=== PATIENT | female | born 1960 | race African-American/Black ===

== ENCOUNTER 2017-11-05 12:42 | Emergency (ER) | payer MEDICAID ==
[~2017-11-05] VITALS: Ht 167.6 cm; Wt 90.7 kg
[~2017-11-05 12:42] MED LIST: AMLODIPINE BESY10 MG ORAL; BACITRACIN1 GM MC; BENADRYL ALLERG25 M1 PO; BENADRYL25 MG ORAL; CEPHALEXIN500 MG ORAL; CYCLOBENZAPRINE10 MG ORAL; DOXYCYCLINE MO100 MG ORAL; GABAPENTIN300 MG ORAL; HYDROCODON-ACE1 EA15 ORAL; HYDROCORTISON28.4 G5 TOPIC
--- NOTE | 2017-11-05 13:33 | Emergency Room Report ---
History of Present Illness General Chief Complaint: Lower Extremity Injury Source: Patient Present Illness HPI 57-year-old female presents emergency department complaining of 10 out of 10 in severity localized pain to the lateral aspect of the right ankle since yesterday. Patient status post mechanical trip and fall while walking down some stairs. Patient states she did not hit her head she did not lose consciousness she denies neck or back pain. Patient states that she iced her foot initially and she did experience some throbbing pain however upon wakening this morning she had exacerbation of pain with weight-bearing and attempts to walk. Patient denies previous injury to this extremity she denies skin color changes, bruises, open wounds or bleeding. Denies numbness tingling or loss of sensation or gross motor movements of the extremities, incontinence of bowel or bladder. Denies CP, Palpitations, LOC, AMS, dizziness, Changes in Vision, weakness or a sudden severe headache. Allergies: Coded Allergies: No Known Allergies (Unverified , 03/23/16) Patient History Past Medical History: see triage record Past Surgical History: none Pertinent Family History: none Last Menstrual Period: nn/a Now: No Reviewed Nursing Documentation: PMH: Agreed; PSxH: Agreed Nursing Documentation-PMH Hx Hypertension: Yes - chronic low back pain, spinal stenosis Review of Systems All Other Systems: negative except mentioned in HPI Physical Exam Vital Signs Date Time Temp Pulse Resp B/P (MAP) Pulse Ox O2 Delivery O2 Flow Rate FiO2 11/05/17 12:56 98.2 61 18 134/60 98 Room Air 98.2 Sp02 EP Interpretation: reviewed, normal General Appearance: no apparent distress, alert, GCS 15, non-toxic Head: normocephalic, atraumatic ENT: hearing grossly normal, normal voice Neck: full range of motion Respiratory: lungs clear, normal breath sounds, speaking full sentences Cardiovascular #1: regular rate, rhythm, no edema, normal capillary refill Musculoskeletal: back normal, normal range of motion, swelling - right lateral ankle, tender - right lateral ankle Neurologic: alert, oriented x3, responsive, motor strength/tone normal, sensory intact, speech normal, grossly normal Psychiatric: judgement/insight normal Skin: normal color, no rash, warm/dry, well hydrated Medical Decision Making PA Attestation Dr. paulino is my supervising Physician whom patient management has been discussed with. Diagnostic Impression: Primary Impression: Right ankle sprain Qualified Codes: S93.401A - Sprain of unspecified ligament of right ankle, initial encounter Additional Impression: Avulsion fracture ER Course 57-year-old female presents emergency department complaining of 10 out of 10 in severity localized pain to the lateral aspect of the right ankle since yesterday. Patient status post mechanical trip and fall while walking down some stairs. Patient states she did not hit her head she did not lose consciousness she denies neck or back pain. Patient states that she iced her foot initially and she did experience some throbbing pain however upon wakening this morning she had exacerbation of pain with weight-bearing and attempts to walk. Patient denies previous injury to this extremity she denies skin color changes, bruises, open wounds or bleeding. Denies numbness tingling or loss of sensation or gross motor movements of the extremities, incontinence of bowel or bladder. Denies CP, Palpitations, LOC, AMS, dizziness, Changes in Vision, weakness or a sudden severe headache. Ddx considered but are not limited to Fracture, dislocation, contusion, Sprain/ Strain/Spasm, Vital signs: are WNL, pt. is afebrile H&PE are most consistent with musculoskeletal injury will perform imaging to r/ o fractures/dislocations. ORDERS: - X-ray Right ankle - POSITIVE FOR AVULSION FRACTURE, Negative for Dislocation, or significant soft tissue injury, per preliminary read in ED, and signed by BÁRBARA Matos, my supervising physician has reviewed, and agrees with my interpretation. ED INTERVENTIONS: -Stir-up Splint applied to the right ankle by machining technician. Pt. remains neurovascularly intact. -Patient is provided with crutches and instructed on their use d/w pt. orthopedic follow up, PCP visit for referral to Ortho. DISCHARGE: At this time pt. is stable for d/c to home. Will provide printed patient care instructions, and any necessary prescriptions. Care plan and follow up instructions have been discussed with the patient prior to discharge. Other X-Ray Diagnostic Results Other X-Ray Diagnostic Results : X-Ray ordered: Right ankle # of Views/Limited Vs Complete: 3 View Indication: Pain EP Interpretation: Yes BÁRBARA Xray: Interpretation reviewed, by supervising MD, and agrees with findings. Interpretation: no dislocation, other - Soft tissue swelling noted and Avulsion Fracture Impression: Other - Abnormal Electronically Signed by: Annemarie Matos PA-C Last Vital Signs Date Time Temp Pulse Resp B/P (MAP) Pulse Ox O2 Delivery O2 Flow Rate FiO2 11/05/17 12:56 98.2 61 18 134/60 98 Room Air 98.2 Disposition: HOME, SELF-CARE Condition: Stable Scripts Ibuprofen* (MOTRIN*) 600 Mg Tablet 600 MG ORAL THREE TIMES A DAY, #20 TAB 0 Refills Prov: Annemarie Matos 11/05/17 Hydrocodone Bit/Acetaminophen 5-325* (NORCO 5-325*) 1 Each Tablet 1 TAB ORAL Q6H PRN for For Pain, #10 TAB 0 Refills Prov: Annemarie Matos 11/05/17 Patient Instructions: Ankle Sprain, Avulsion Fracture of the Foot Additional Instructions: Take medications as directed. Follow up with a Primary Care Provider in 3-5 days,fro ORTHOPEDIC Referral even if your symptoms have resolved. --Please review list of primary care clinics, if you do not already have a primary care provider Return sooner to ED if new symptoms occur, or current symptoms become worse. Do not drink alcohol, drive, or operate heavy machinery while taking [place] as this may cause drowsiness. - Please note that this Emergency Department Report was dictated using KARALITsea captain technology software, occasionally this can lead to erroneous entry secondary to interpretation by the dictation equipment. Annemarie Matos Nov 05, 2017 13:33
[2017-11-05] MEDS ORDERED: NORCO 5-325 TA1 EACH ORAL (13:46)
[2017-11-05] MEDS ORDERED: IBUPROFEN600 MG ORAL (13:46)
--- NOTE | 2017-11-05 14:12 | Diagnostic Imaging Report ---
Indication: Pain right ankle ankle pain/trauma Comparison: None Findings: 3 views of the right ankle obtained. Tiny bone fragment demonstrated in the anterolateral part of the foot in one of the views. This could be a small avulsive type injury. Soft tissue swelling is noted laterally. The ankle mortise is normal. No malalignment seen. IMPRESSION: Suspect a small cortical avulsive injury anterolateral part of the foot.
[2017-11-05 15:15] VITALS: BP 134/60
== END 2017-11-05 15:15 | disposition home or self-care (01) ==
LOC: EMR 13:15
DX: S93.401A Sprain of unspecified ligament of right ankle, initial encounter (principal); W10.9XXA Fall (on) (from) unspecified stairs and steps, initial encounter; Y92.9 Unspecified place or not applicable
CPT/HCPCS: 29505; 99284

== ENCOUNTER 2017-11-18 11:11 | Emergency (ER) | payer MEDICAID ==
[~2017-11-18] VITALS: Ht 170.2 cm; Wt 90.7 kg
[~2017-11-18 11:11] MED LIST changes: +IBUPROFEN600 MG ORAL; +NORCO 5-325 TA1 EACH ORAL
[2017-11-18] MEDS ORDERED: NORCO1 E1 ORAL (13:38)
--- NOTE | 2017-11-18 13:38 | Emergency Room Report ---
History of Present Illness General Chief Complaint: Lower Extremity Injury Source: Patient Present Illness Allergies: Coded Allergies: No Known Allergies (Unverified , 03/23/16) Nursing Documentation-[facility] Past Medical History: No History, Except For Hx Hypertension: Yes - chronic low back pain, spinal stenosis Hx Cerebrovascular Accident: Yes Physical Exam Vital Signs Date Time Temp Pulse Resp B/P (MAP) Pulse Ox O2 Delivery O2 Flow Rate FiO2 11/18/17 11:26 98.3 81 18 140/96 95 Room Air 98.2 Medical Decision Making PA Attestation Dr. Cassidy is my supervising Physician whom patient management has been discussed with. Diagnostic Impression: Primary Impression: Right ankle pain Qualified Codes: M25.571 - Pain in right ankle and joints of right foot Additional Impression: Foot pain, right Last Vital Signs Date Time Temp Pulse Resp B/P (MAP) Pulse Ox O2 Delivery O2 Flow Rate FiO2 11/18/17 11:26 98.3 81 18 140/96 95 Room Air 98.2 Disposition: HOME, SELF-CARE Condition: Stable Referrals: NOT APPLICABLE THIS PATIENT,RE (PCP) Patient Instructions: Avulsion Fracture of the Foot Additional Instructions: Continue to take previously prescribed pain medications as directed. Keep extremity Elevated to reduce swelling* Follow up with an EMBEDDED ENGINEER in 3-5 days, even if your symptoms have resolved. If symptoms persist MRI may be required at the discretion of your PCP or Ortho Specialist. --Please review list of primary care clinics, if you do not already have a primary care provider who can give you an Orthopedic Referral. Return sooner to ED if new symptoms occur, or current symptoms become worse. Do not drink alcohol, drive, or operate heavy machinery while taking [place] as this may cause drowsiness. - Please note that this Emergency Department Report was dictated using [employer] equipment operator technology software, occasionally this can lead to erroneous entry secondary to interpretation by the dictation equipment. Annemarie Matos Nov 18, 2017 13:38
--- NOTE | 2017-11-18 13:40 | Diagnostic Imaging Report ---
Indication: Foot Pain Comparison: None Findings: 3 views of the right foot were obtained. On one of the frontal projection there is a tiny sliver of cortical bone in the anterolateral hindfoot likely a tiny avulsion injury. Correlate clinically. No malalignment, erosions or periostitis are identified. Soft tissues are unremarkable. Impression: Suspected tiny avulsion fracture involving the anterolateral hindfoot.
[2017-11-18 14:34] VITALS: BP 128/83
== END 2017-11-18 14:42 | disposition home or self-care (01) ==
LOC: EMR 12:43
DX: M25.571 Pain in right ankle and joints of right foot (principal); M79.671 Pain in right foot; I10 Essential (primary) hypertension; Z86.73 Personal history of transient ischemic attack (TIA), and cerebral infarction without residual deficits; G89.29 Other chronic pain; M54.5 Low back pain
CPT/HCPCS: 99283

== ENCOUNTER 2018-08-02 09:43 | Emergency (ER) | payer MEDICAID ==
[~2018-08-02] VITALS: Ht 170.2 cm; Wt 86.2 kg
[~2018-08-02 09:43] MED LIST changes: +NORCO1 E1 ORAL
[2018-08-02] MEDS ORDERED: ASPIR 8181 MG ORAL (09:53)
[2018-08-02 10:16] VITALS: BP 131/88
--- NOTE | 2018-08-02 10:17 | NUR ---
ED Nurse Note:pt. came with swelling ledft eye, no drainage
--- NOTE | 2018-08-02 10:51 | Emergency Room Report ---
History of Present Illness General Chief Complaint: Skin Rash/Abscess Source: Patient, Medical Record Present Illness HPI Patient states that she noticed a bump and some swelling on her left eyelid over the past day. She states she also noted this morning that there was discharge and crusting on her eyelids when she woke up. She denies eye pain. She denies blurry vision. She denies recent illness. She denies headache. She has neck pain. She has no other complaints. Allergies: Coded Allergies: No Known Allergies (Unverified , 08/02/18) Patient History Past Medical History: none, see triage record, HTN Social History: Denies: smoking, alcohol use, drug use Last Menstrual Period: MENOPAUSE Reviewed Nursing Documentation: PMH: Agreed; PSxH: Agreed Nursing Documentation-PMH Hx Hypertension: Yes - chronic low back pain, spinal stenosis Hx Cerebrovascular Accident: Yes Review of Systems All Other Systems: negative except mentioned in HPI Physical Exam Vital Signs Date Time Temp Pulse Resp B/P (MAP) Pulse Ox O2 Delivery O2 Flow Rate FiO2 08/02/18 09:49 98.8 83 13 131/88 96 Room Air Sp02 EP Interpretation: reviewed, normal General Appearance: no apparent distress, alert, GCS 15, non-toxic Head: normocephalic, atraumatic Eyes: left eye other - Nodule with slight swelling in L. upper lid. ; bilateral eye PERRL ENT: hearing grossly normal, normal pharynx, no angioedema, normal voice Neck: normal inspection Respiratory: no respiratory distress, no retraction, no accessory muscle use, speaking full sentences Rectal: deferred Musculoskeletal: normal inspection Neurologic: alert, oriented x3, responsive, motor strength/tone normal, sensory intact, speech normal Psychiatric: judgement/insight normal, memory normal, mood/affect normal, no suicidal/homicidal ideation Skin: warm/dry, well hydrated, other - See above in Eye exam Medical Decision Making Diagnostic Impression: Primary Impression: Chalazion left upper eyelid Additional Impression: Conjunctivitis ER Course This patient has a chalazion of the left upper eyelid. She also has mild conjunctivitis. I'm going to go ahead and treat the patient with topical Ilotycin. I also educated the patient to use warm compresses to her eyelid. As a precaution and then the patient oral antibiotics in case there is an early infection that could be a pre-septal cellulitis. Although, overall, the evaluation is benign. The patient is also instructed to follow-up closely with her primary care physician. The patient is given close return precautions and follow-up instructions. Last Vital Signs Date Time Temp Pulse Resp B/P (MAP) Pulse Ox O2 Delivery O2 Flow Rate FiO2 08/02/18 10:16 98.8 82 13 131/88 96 Room Air Status: improved Disposition: HOME, SELF-CARE Condition: Improved Referrals: NON PHYSICIAN (PCP) Monique Duong DO Aug 02, 2018 10:51
[2018-08-02] MEDS ORDERED: ERYTHROMYCIN3.5 GM LEFT EYE (11:07)
[2018-08-02] MEDS ORDERED: CEPHALEXIN500 MG ORAL (11:07)
[2018-08-02 11:28] VITALS: BP 131/88
--- NOTE | 2018-08-02 11:29 | NUR ---
ER DISCHARGE NOTE: Patient is cleared to be discharged per ERMD, pt is aox4, on room air, with stable vital signs. pt was given dc and prescription instructions, pt was able to verbalize understanding, pt is able to ambulate with steady gait. pt took all belongings.
== END 2018-08-02 11:30 | disposition home or self-care (01) ==
LOC: EMR 10:45
DX: H00.14 Chalazion left upper eyelid (principal); H10.9 Unspecified conjunctivitis; I10 Essential (primary) hypertension; Z86.73 Personal history of transient ischemic attack (TIA), and cerebral infarction without residual deficits
CPT/HCPCS: 99282

== ENCOUNTER 2018-08-15 09:22 | Emergency (ER) | payer MEDICAID ==
[~2018-08-15] VITALS: Ht 170.2 cm; Wt 90.7 kg
[~2018-08-15 09:22] MED LIST changes: +ASPIR 8181 MG ORAL; +ERYTHROMYCIN3.5 GM LEFT EYE
[2018-08-15 09:25] VITALS: BP 139/89
[2018-08-15] MEDS ORDERED: SOMA250 MG PO (09:29)
--- NOTE | 2018-08-15 09:34 | NUR ---
ED Nurse Note: Pt came in due to lower back pain since yesterday and has been norco. Denies trauma/injury to her back.
--- NOTE | 2018-08-15 09:40 | NUR ---
ED Nurse Note: Dr Mccracken at the bed side for Incision and drainage.
--- NOTE | 2018-08-15 10:04 | Emergency Room Report ---
History of Present Illness General Chief Complaint: Lower Back Pain or Injury Source: Patient Present Illness HPI Patient presents with increased lower back pain. It started when she was sitting yesterday. She's been taking [place] and [place] at home. The pain is severe. It's radiating down her left leg she has some numbness of her great toe. She's had symptoms like this before. The last time it happened when she was reaching up for something. She's had pain radiating down the left leg in the past. She feels it's mainly muscle spasms. Pain is rated 7/10, aching and tightness. Patient's had an MRI done in the past and says she has bulging disks. There is no trauma recently. She denies any fevers, chills, blood thinners, incontinence, weakness. No chest pain, palpitations, nausea, vomiting, diarrhea, dysuria, abdominal pain , shortness of breath, depression, visual changes, headache. Allergies: Coded Allergies: No Known Allergies (Unverified , 08/02/18) Patient History Past Medical History: see triage record Social History: Denies: smoking Social History Narrative brought by daughter : 5 Reviewed Nursing Documentation: PMH: Agreed; PSxH: Agreed Nursing Documentation-PMH Hx Hypertension: Yes - chronic low back pain, spinal stenosis Hx Cerebrovascular Accident: Yes Review of Systems All Other Systems: negative except mentioned in HPI Physical Exam Vital Signs Date Time Temp Pulse Resp B/P (MAP) Pulse Ox O2 Delivery O2 Flow Rate FiO2 08/15/18 09:25 97.5 88 19 139/89 96 Room Air Sp02 EP Interpretation: reviewed, normal General Appearance: well appearing, no apparent distress, GCS 15 Head: normocephalic, atraumatic Eyes: bilateral eye normal inspection, bilateral eye PERRL ENT: hearing grossly normal, normal voice, moist mucus membranes Neck: full range of motion, supple Respiratory: lungs clear, no respiratory distress, speaking full sentences Cardiovascular #1: regular rate, rhythm Cardiovascular #2: 2+ radial (R) Gastrointestinal: normal inspection Musculoskeletal: other - Lumbar tenderness without point tenderness. Bilateral muscle spasms. Straight leg raise without increase in pain radiating to the left leg. There is minimal crossover pain when right leg is lifted. Neurologic: alert, motor strength/tone normal, DTRs symmetric, sensory intact, normal gait, speech normal Psychiatric: mood/affect normal Skin: no rash Medical Decision Making Diagnostic Impression: Primary Impression: Low back pain Qualified Codes: M54.5 - Low back pain ER Course Patient presents with lumbar pain. Is a long history of disc disease. There are no red flag symptoms at this time although she does say that she's got some numbness in her left big toe. She's had recent MRI. She's complaining more of muscle spasm at this time. Imaging is not indicated. The patient will be given a shot of Toradol and Percocet. Patient improved with treatment. No medical emergency at this time and no red flag symptoms. Patient stable for outpatient observation and treatment. Last Vital Signs Date Time Temp Pulse Resp B/P (MAP) Pulse Ox O2 Delivery O2 Flow Rate FiO2 08/15/18 10:49 98.0 69 18 130/76 98 Room Air Status: improved Disposition: HOME, SELF-CARE Condition: Improved Scripts Methocarbamol* (ROBAXIN*) 500 Mg Tablet 500 MG PO TID, #10 TAB 0 Refills Prov: Vinny Mccracken MD 08/15/18 Lidocaine/Menthol (LIDOPATCH) 1 Each Adh..patch 1 EACH TOPIC DAILY, #4 PATCH Patch(es) may remain in place for up to 12 hours in any 24-hour period. Prov: Vinny Mccracken MD 08/15/18 Ibuprofen* (MOTRIN*) 600 Mg Tablet 600 MG ORAL Q6H PRN for For Pain, #20 TAB Prov: Vinny Mccracken MD 08/15/18 Vinny Mccracken MD Aug 15, 2018 10:04
[2018-08-15] MEDS ORDERED: Ketorolac 60mg Inj IM ONE (10:15)
[2018-08-15] MEDS ORDERED: oxyCODONE HCL/Acetaminophen 5/325mg ORAL ONE (10:15)
[2018-08-15] MEDS ORDERED: ROBAXIN500 MG PO (10:42)
[2018-08-15] MEDS ORDERED: IBUPROFEN600 MG ORAL (10:42)
[2018-08-15] MEDS ORDERED: LIDOPATCH1 EACH TOPIC (10:42)
[2018-08-15 10:49] VITALS: BP 130/76
--- NOTE | 2018-08-15 10:49 | NUR ---
ER DISCHARGE NOTE: Patient is cleared to be discharged per ERMD, pt is aox4, on room air, with stable vital signs. pt was given dc and prescription instructions, pt was able to verbalize understanding, pt id band removed. pt is able to ambulate with steady gait. pt took all belongings and left with her family members.
== END 2018-08-15 10:49 | disposition home or self-care (01) ==
LOC: EMR 09:50
DX: M54.5 Low back pain (principal); R20.0 Anesthesia of skin; Z86.73 Personal history of transient ischemic attack (TIA), and cerebral infarction without residual deficits; M51.36 Other intervertebral disc degeneration, lumbar region
CPT/HCPCS: 96372; 99283

== ENCOUNTER 2018-12-03 09:45 | Emergency (ER) | payer MEDICAID ==
[~2018-12-03] VITALS: Ht 170.2 cm; Wt 86.2 kg
[~2018-12-03 09:45] MED LIST changes: +LIDOPATCH1 EACH TOPIC; +ROBAXIN500 MG PO; +SOMA250 MG PO
[2018-12-03 10:06] VITALS: BP 128/91
--- NOTE | 2018-12-03 10:08 | NUR ---
ED Nurse Note: pt walked in to Ed due to pain on right side of neck since Sun morning. pt denies any injury or twisted. per pt, ok for 3 hrs and pain started. unable to turn due to pain. AAO x4. respirations even and non-labored noted. will wait for the further order.
[2018-12-03] MEDS ORDERED: ATORVASTATIN CA20 MG ORAL (10:11)
[2018-12-03] MEDS ORDERED: oxyCODONE HCL/Acetaminophen 5/325mg ORAL ONE (10:15)
[2018-12-03] MEDS ORDERED: Dexamethasone 4mg/ml vial IM ONE (10:15)
[2018-12-03] MEDS ORDERED: Ketorolac 60mg Inj IM ONE (10:15)
[2018-12-03] MEDS ORDERED: NORCO 5-325 TA1 EACH ORAL (10:18)
[2018-12-03] MEDS ORDERED: CYCLOBENZAPRINE10 MG ORAL (10:18)
[2018-12-03] MEDS ORDERED: NAPROXEN250 MG ORAL (10:18)
--- NOTE | 2018-12-03 10:18 | Emergency Room Report ---
History of Present Illness General Chief Complaint: Neck Pain Source: Patient Present Illness HPI 58-year-old female history of hypertension, presents with right neck pain, patient states she woke up with it, no trauma, is been present since 5 days prior to arrival, she endorses an achy pain aggravated with movement alleviated with rest, no nausea no vomiting, no fever no chills, no chest pain, no shortness of breath, she presents for evaluation Allergies: Coded Allergies: No Known Allergies (Unverified , 08/02/18) Patient History Past Medical History: see triage record Last Menstrual Period: na Reviewed Nursing Documentation: PMH: Agreed; PSxH: Agreed Nursing Documentation-PMH Past Medical History: No History, Except For Hx Hypertension: Yes - chronic low back pain, spinal stenosis Hx Cerebrovascular Accident: Yes Review of Systems All Other Systems: negative except mentioned in HPI Physical Exam Vital Signs Date Time Temp Pulse Resp B/P (MAP) Pulse Ox O2 Delivery O2 Flow Rate FiO2 12/03/18 09:57 98.2 104 20 128/91 (103) 98 Room Air Sp02 EP Interpretation: reviewed, normal General Appearance: well appearing, no apparent distress, alert Head: normocephalic, atraumatic Eyes: bilateral eye PERRL, bilateral eye EOMI ENT: uvula midline, moist mucus membranes Neck: thyroid normal, limited range of motion, tender lateral - Right side tender to palpation, trapezius spasm , other - No C-spine tenderness Respiratory: lungs clear, no respiratory distress, no retraction, no accessory muscle use Cardiovascular #1: normal peripheral pulses, regular rate, rhythm, no edema, no gallop, no murmur Gastrointestinal: non tender, soft, no guarding, no rebound Musculoskeletal: normal inspection Neurologic: alert, oriented x3 Psychiatric: mood/affect normal Skin: no rash, warm/dry Medical Decision Making Diagnostic Impression: Primary Impression: Neck pain Additional Impression: Torticollis, acquired ER Course 58-year-old female presents with most likely torticollis, low suspicion for meningitis, low suspicion for trauma to the C-spine, patient counseled to follow -up with a primary care doctor, will provide patient with a pain regimen, return precautions discussed. Cures report ran Last Vital Signs Date Time Temp Pulse Resp B/P (MAP) Pulse Ox O2 Delivery O2 Flow Rate FiO2 12/03/18 10:06 98.2 104 20 128/91 98 Room Air Disposition: HOME, SELF-CARE Condition: Stable Scripts Hydrocodone Bit/Acetaminophen 5-325* (NORCO 5-325*) 1 Each Tablet 1 TAB ORAL Q6H PRN for For Pain, #12 TAB 0 Refills Prov: Naveen Coreas MD 12/03/18 Cyclobenzaprine Hcl* (FLEXERIL*) 10 Mg Tablet 10 MG ORAL THREE TIMES A DAY, #30 TAB Prov: Naveen Coreas MD 12/03/18 Naproxen* (NAPROSYN*) 250 Mg Tablet 250 MG ORAL BID PRN for For Pain, #20 TAB 0 Refills Prov: Naveen Coreas MD 12/03/18 Referrals: [facility] Patient Instructions: Acute Torticollis, Cervical Strain and Sprain With Rehab- [facility] Additional Instructions: The patient was provided with discharge instructions, notified to follow-up with a primary care doctor and or specialist in the next 24-48 hours, and to return to the ED if they have worsening of their symptoms. Please note that this report is being documented using Wattage technology. This can lead to erroneous entry secondary to incorrect interpretation by the dictating instrument. Naveen Coreas MD Dec 03, 2018 10:18
[2018-12-03 10:47] VITALS: BP 117/78
--- NOTE | 2018-12-03 10:52 | NUR ---
ER DISCHARGE NOTE: Patient is cleared to be discharged per ERMD with daughter, pt is aox4, on room air, with stable vital signs. pt was given dc and prescription instructions, pt was able to verbalize understanding, pt id band removed without complications. pt is able to ambulate with steady gait. pt took all belongings.
== END 2018-12-03 10:53 | disposition home or self-care (01) ==
LOC: EMR 10:15
DX: M43.6 Torticollis (principal); G89.29 Other chronic pain; M54.5 Low back pain; M48.00 Spinal stenosis, site unspecified; Z86.73 Personal history of transient ischemic attack (TIA), and cerebral infarction without residual deficits
CPT/HCPCS: 96372; 99283; J1100

== ENCOUNTER 2019-04-24 19:44 | Emergency (ER) | payer MEDICAID ==
[~2019-04-24] VITALS: Ht 172.7 cm; Wt 86.2 kg
[~2019-04-24 19:44] MED LIST changes: +ATORVASTATIN CA20 MG ORAL; +NAPROXEN250 MG ORAL
[2019-04-24 19:52] VITALS: BP 149/93
--- NOTE | 2019-04-24 19:52 | NUR ---
ED Nurse Note: Patient walked into ED c/o muscle spasms that has been an on going issue for the past 2 days. states that she has a history of muscle spasms on her back. No SOB. VSS.
--- NOTE | 2019-04-24 20:00 | NUR ---
ED Nurse Note: ERPA at bedside.
[2019-04-24] MEDS ORDERED: Ketorolac 30mg Inj IM ONE (20:15)
--- NOTE | 2019-04-24 20:15 | Emergency Room Report ---
History of Present Illness General Chief Complaint: Pain Source: Patient Present Illness HPI 59-year-old female with no significant past medical history here complaining of 2 days of right lower back pain rating a 10 out of 10. Patient reports that she bent over to tie her shoe as she felt a muscle pull in her right lower back. Denies any pain radiation, tingling and numbness. Denies urinary symptoms such as dysuria and urinary frequency. Denies fever and chills, nausea vomiting. Patient reports that in the past she has had multiple muscle spasms and usually takes baclofen for which she currently has an active prescription for, and ibuprofen. Patient also has a prescription for tramadol and used to take [place] prior to that for chronic pain. Denies any fall or injury at this time. Denies abdominal pain, nausea vomiting, chest pain, shortness of breath, no other associated symptoms. Allergies: Coded Allergies: No Known Allergies (Unverified , 08/02/18) Patient History Past Medical History: see triage record Past Surgical History: unable to obtain Pertinent Family History: none Last Menstrual Period: n/a Now: No Immunizations: UTD Reviewed Nursing Documentation: PMH: Agreed; PSxH: Agreed Nursing Documentation-PMH Past Medical History: No History, Except For Hx Hypertension: Yes - chronic low back pain, spinal stenosis Hx Cerebrovascular Accident: Yes Review of Systems All Other Systems: negative except mentioned in HPI Physical Exam Vital Signs Date Time Temp Pulse Resp B/P (MAP) Pulse Ox O2 Delivery O2 Flow Rate FiO2 04/24/19 19:47 98.4 81 18 149/93 (111) 98 Room Air Sp02 EP Interpretation: reviewed, normal General Appearance: no apparent distress, alert, GCS 15, non-toxic Head: normocephalic, atraumatic ENT: hearing grossly normal, normal pharynx, no angioedema, normal voice Neck: full range of motion, supple, supple/symm/no masses Respiratory: chest non-tender, lungs clear, normal breath sounds, no rhonchi, no retraction, no wheezing, speaking full sentences Cardiovascular #1: regular rate, rhythm, no edema, no murmur Cardiovascular #2: 2+ dorsalis pedis (R), 2+ dorsalis pedis (L) Gastrointestinal: normal bowel sounds, non tender, soft, non-distended, no guarding, no rebound Genitourinary: no CVA tenderness Musculoskeletal: back normal, normal range of motion, digits/nails normal, no calf tenderness, pelvis stable, no lower extremity edema, non-tender Neurologic: alert, motor strength/tone normal, oriented x3, sensory intact, responsive, speech normal Psychiatric: judgement/insight normal, memory normal, mood/affect normal, no suicidal/homicidal ideation Skin: no rash Lymphatic: no adenopathy Medical Decision Making PA Attestation All my diagnosis and treatment plans were reviewed ad discussed with my supervising physician Dr. Mosley Diagnostic Impression: Primary Impression: Muscle strain ER Course 59-year-old female with no significant past medical history here complaining of 2 days of right lower back pain rating a 10 out of 10. Patient reports that she bent over to tie her shoe as she felt a muscle pull in her right lower back. Denies any pain radiation, tingling and numbness. Denies urinary symptoms such as dysuria and urinary frequency. Denies fever and chills, nausea vomiting. Patient reports that in the past she has had multiple muscle spasms and usually takes baclofen for which she currently has an active prescription for, and ibuprofen. Patient also has a prescription for tramadol and used to take [place] prior to that for chronic pain. Denies any fall or injury at this time. Denies abdominal pain, nausea vomiting, chest pain, shortness of breath, no other associated symptoms. Ddx considered but are not limited to: Lumbar spine sprain, strain, fracture, contusion, neuropathy Vital signs: are WNL, pt. is afebrile H&PE are most consistent with: Lumbar strain ORDERS: No x-ray necessary at this time as patient no fall or injure herself also no indication for testing of urine patient does not have any urinary symptoms and this is very unlikely to be secondary to renal issues. Ibuprofen 800, lidocaine patch. ER intervention: toradol, lidocaine patch DISCHARGE: At this time pt. is stable for d/c to home. Will provide printed patient care instructions, and any necessary prescriptions. Care plan and follow up instructions have been discussed with the patient prior to discharge. Take medication as directed, follow-up with your primary care provider you may benefit from physical therapy and pain management. At this time no narcotics are indicated this is a muscle spasm diagnosis, also patient had an active prescription for baclofen and no other muscle relaxants can be prescribed. Last Vital Signs Date Time Temp Pulse Resp B/P (MAP) Pulse Ox O2 Delivery O2 Flow Rate FiO2 04/24/19 19:47 98.4 81 18 149/93 (111) 98 Room Air Disposition: HOME, SELF-CARE Condition: Stable Scripts Lidocaine Patch* (Lidoderm Patch*) 1 Each Adh..patch 1 PATCH TOPIC DAILY, #7 PATCH 0 Refills Patch(es) may remain in place for up to 12 hours in any 24-hour period. Prov: Tavia Ramos 04/24/19 Ibuprofen (Ibu) 800 Mg Tablet 800 MG PO TID, #30 TAB Prov: Tavia Ramos 04/24/19 Patient Instructions: Muscle Strain, [id number] Additional Instructions: Take medication as directed, follow-up with your primary care provider, avoid strenuous physical activity, at this time no x-ray is necessary as you did not fall or injure your bones, you are not complaining of any urinary frequency and urgency and no pain radiation which is low suspicion for kidney infection. you can benefit from physical therapy and pain management. Tavia Ramos Apr 24, 2019 20:15
[2019-04-24] MEDS ORDERED: LIDODERM700 M1 TOPIC (20:16)
[2019-04-24] MEDS ORDERED: IBU800 MG PO (20:16)
[2019-04-24 20:21] VITALS: BP 149/93
--- NOTE | 2019-04-24 20:21 | NUR ---
ED Nurse Note: Pt cleared by ERMD for discharge. DC instructions/prescription was given and explained to pt and verbalized understanding of teachings. All medical deviecs such as ID band removed. Pt is AAO x4, ambulatory and left with all personal belongings.
== END 2019-04-24 20:21 | disposition home or self-care (01) ==
LOC: EMR 20:20
DX: M54.5 Low back pain (principal); T14.8XXA Other injury of unspecified body region, initial encounter; X50.1XXA Overexertion from prolonged static or awkward postures, initial encounter; Y92.9 Unspecified place or not applicable; Z86.73 Personal history of transient ischemic attack (TIA), and cerebral infarction without residual deficits
CPT/HCPCS: 96372; J1885; Z7502; 99283

== ENCOUNTER 2019-05-17 09:04 | Emergency (ER) | payer MEDICAID ==
[~2019-05-17] VITALS: Ht 170.2 cm; Wt 86.2 kg
[~2019-05-17 09:04] MED LIST changes: +IBU800 MG PO; +LIDODERM700 M1 TOPIC
[2019-05-17 09:23] VITALS: BP 129/84
[2019-05-17] MEDS ORDERED: Lidocaine 1% 10mg/ml/Epi 0.005mg/ml 30ml vial INJ ONE ×2 (09:37→14:45)
[2019-05-17] MEDS ORDERED: IBUPROFEN600 MG ORAL (10:02)
[2019-05-17] MEDS ORDERED: BACTRIM DS TAB1 EAC1 ORAL (10:02)
[2019-05-17] MEDS ORDERED: NORCO 5-325 TA1 EACH ORAL (10:02)
[2019-05-17] MEDS ORDERED: CEPHALEXIN500 MG ORAL (10:02)
[2019-05-17 10:11] VITALS: BP 126/83
--- NOTE | 2019-05-17 10:21 | Emergency Room Report ---
History of Present Illness General Chief Complaint: Pain Source: Patient Present Illness HPI Patient has a history of hidradenitis. Patient has a history of recurrent buttock abscesses. Patient presents emergency department today complaining of left buttock pain and swelling consistent with an abscess. She denies any fever nausea vomiting diarrhea chills. Denies any discharge. No other complaints are noted. Symptoms noted to be moderate to severe. No other modifying factors. No other associated signs and symptoms. No other complaints were noted. Allergies: Coded Allergies: No Known Allergies (Unverified , 08/02/18) Patient History Past Medical History: HTN Past Surgical History: none Pertinent Family History: none Social History: Denies: smoking, alcohol use, drug use Last Menstrual Period: na Now: No Reviewed Nursing Documentation: PMH: Agreed; PSxH: Agreed Nursing Documentation-PMH Past Medical History: No History, Except For Hx Hypertension: Yes - chronic low back pain, spinal stenosis Hx Cerebrovascular Accident: Yes Review of Systems All Other Systems: negative except mentioned in HPI Physical Exam Vital Signs Date Time Temp Pulse Resp B/P (MAP) Pulse Ox O2 Delivery O2 Flow Rate FiO2 05/17/19 09:11 99.9 108 20 129/84 (99) 97 Room Air Sp02 EP Interpretation: reviewed, normal General Appearance: normal inspection, well appearing, no apparent distress, alert Head: atraumatic Eyes: bilateral eye normal inspection ENT: normal ENT inspection, hearing grossly normal, normal voice Neck: normal inspection, full range of motion, supple, no bony tend Respiratory: normal inspection, lungs clear, normal breath sounds, no respiratory distress, no retraction, no wheezing Cardiovascular #1: regular rate, rhythm, no edema Gastrointestinal: normal inspection, normal bowel sounds, non tender, soft, no guarding, no hernia Genitourinary: no CVA tenderness Musculoskeletal: swelling - Left buttock. Fluctuant swelling. Neurologic: alert, responsive, speech normal, normal inspection Psychiatric: normal inspection, judgement/insight normal, mood/affect normal Skin: other - Left buttock erythema and swelling. Procedures Incision and Drainage Incision and Drainage : Consent: Verbal Site: Left buttock Blade Size: 11 I & D Procedure: betadine prep, sterile drapes applied, sterile dressing applied, gauze wick placed Wound Location: lower extremity - Left buttock Wound Length (cm): 1 Anesthesia: 1% Lidocaine Volume Anesthetic (ccs): 5 Patient Tolerated: Well Complications: None Progress Left buttock incision and drainage performed. 1 cm incision made. Wound explored. Large amount of pus expressed. Wound was packed with iodoform. Patient given wound care instructions. Medical Decision Making Diagnostic Impression: Primary Impression: Abscess ER Course Patient presents emergency department today complaint left buttock pain and swelling. Differential considerations include abscess, cellulitis, cyst formation just name a few. Given patient's presentation I feel the patient likely had an abscess. Using a 18-gauge needle I was able to aspirate some pus from the left buttock. This confirmed the presence of an abscess. Therefore an incision was made. 1 cm incision was made and pus was expressed. Wound was packed. Patient told procedure well difficulty. Patient was given wound care instructions. Patient was given prescription for Keflex and Bactrim. Patient is advised to follow up with primary doctor in 2-3 days and return the emergency room for any worsening symptoms and as needed. Last Vital Signs Date Time Temp Pulse Resp B/P (MAP) Pulse Ox O2 Delivery O2 Flow Rate FiO2 05/17/19 10:11 99.8 95 20 126/83 97 Room Air Status: improved Disposition: HOME, SELF-CARE Condition: Stable Scripts Ibuprofen* (MOTRIN*) 600 Mg Tablet 600 MG ORAL Q8H PRN for For Pain, #20 TAB 0 Refills Prov: Jef Hudson MD 05/17/19 Hydrocodone Bit/Acetaminophen 5-325* (NORCO 5-325*) 1 Each Tablet 1 TAB ORAL Q6H PRN for For Pain, #10 TAB 0 Refills Prov: Jef Hudson MD 05/17/19 Trimethoprim/Sulfamethoxazole 160/800* (BACTRIM DS TABLET*) 1 Each Tablet 1 TAB ORAL Q12H, #14 TAB 0 Refills Prov: Jef Hudson MD 05/17/19 Cephalexin* (KEFLEX*) 500 Mg Capsule 500 MG ORAL EVERY 6 HOURS for 7 Days, CAP Prov: Jef Hudson MD 05/17/19 Patient Instructions: Incision and Drainage, Care After, Abscess, [id number] Jef Hudson MD May 17, 2019 10:21
== END 2019-05-17 10:12 | disposition home or self-care (01) ==
LOC: EMR 09:45
DX: L02.31 Cutaneous abscess of buttock (principal); Z86.73 Personal history of transient ischemic attack (TIA), and cerebral infarction without residual deficits; I10 Essential (primary) hypertension
CPT/HCPCS: 10060; Z7502; 99283